=== PATIENT | male | born 1990 | race Hispanic/Latino ===

== ENCOUNTER 2017-11-16 21:53 | Emergency (ER) | payer OTHER, SELFPAY ==
[2017-11-16] MEDS ORDERED: predniSONE 20 MG TAB ONE (23:00)
[2017-11-16] MEDS ORDERED: FAMOTIDINE 20 MG TAB ONE (23:01)
--- NOTE | 2017-11-16 23:42 | ER ---
Nurse's Notes [facility] Name: Wai Stewart Age: 26 yrs Sex: Male : 1990 Arrival Date: 11/16/2017 Time: 21:57 Bed 5 Private MD: Diagnosis: Pruritus;Insect bite (nonvenomous), unspecified foot Presentation: 11/16 22:02 Presenting complaint: Patient states: He was bit by ants 45 minutes ago, then about 20 aj1 minutes ago he started itching all over, feeling short of breath, and his throat has been feeling scratchy. Breath sounds are clear to auscultation. No rash noted. Transition of care: patient was not received from another setting of care. Onset: The symptoms/episode began/occurred suddenly. Anaphylaxis evaluation, the patient reports or I have noted the following symptoms which indicate a significant risk of anaphylaxis: shortness of breath urticaria. Onset of symptoms was November 16, 2017 at 21:15. Risk Assessment: Do you want to hurt yourself or someone else? Patient reports no desire to harm self or others. Initial Sepsis Screen: Does the patient meet any 2 criteria? No. Patient's initial sepsis screen is negative. Does the patient have a suspected source of infection? No. Patient's initial sepsis screen is negative. Care prior to arrival: None. 22:02 Method Of Arrival: Ambulatory aj1 22:02 Acuity: CEDRIC 3 aj1 Triage Assessment: 22:07 General: Appears in no apparent distress. uncomfortable, Behavior is calm, cooperative, aj1 appropriate for age. Pain: Denies pain. Neuro: Level of Consciousness is awake, alert, obeys commands. Cardiovascular: Patient's skin is warm and dry. Respiratory: Reports shortness of breath cough that is Airway is patent Respiratory effort is even, unlabored, Respiratory pattern is regular, symmetrical, Breath sounds are clear. Historical: - Allergies: 22:07 No Known Allergies; aj1 - Home Meds: 22:07 None [Active]; aj1 - PMHx: 22:07 None; aj1 - Immunization history:: Flu vaccine is not up to date. - Social history:: Smoking status: Patient/guardian denies using tobacco. - Ebola Screening: : Patient denies travel to an Ebola-affected area in the 21 days before illness onset. Screenin:21 Abuse screen: Denies threats or abuse. Denies injuries from another. Nutritional ak1 screening: No deficits noted. Tuberculosis screening: No symptoms or risk factors identified. Fall Risk None identified. Assessment: 22:25 General: Appears in no apparent distress. Behavior is calm, cooperative. Pain: ak1 Complains of pain in throat. Neuro: No deficits noted. Cardiovascular: No deficits noted. Respiratory: Airway is patent Breath sounds are clear bilaterally. GI: No deficits noted. : No signs and/or symptoms were reported regarding the genitourinary system. EENT: Throat is reddened has enlarged tonsils on right on left. Derm: Reports pain from ant bites started after his shower. Musculoskeletal: No signs and/or symptoms reported regarding the musculoskeletal system. 23:01 Reassessment: Patient appears in no apparent distress at this time. No changes from ak1 previously documented assessment. Patient and/or family updated on plan of care and expected duration. Pain level reassessed. Patient is alert, oriented x 3, equal unlabored respirations, skin warm/dry/pink. pt refused Benadryl PO, he drove himself to ER with no alternate way home. . Respiratory: Airway is patent Respiratory effort is even, unlabored, Respiratory pattern is regular, no resp distress noted at this time. 23:48 Reassessment: DC instructions given to patient. Patient agree with the POC and to ao follow up with PCP. Patient had no questions. Vital Signs: 22:07 BP 124 / 82; Pulse 87; Resp 18; Temp 98.9(O); Pulse Ox 96% on R/A; Weight 74.84 kg; aj1 Height 5 ft. 7 in. (170.18 cm) (R); Pain 0/10; 23:04 Pulse 69; Resp 16; Pulse Ox 97% on R/A; ak1 22:07 Body Mass Index 25.84 (74.84 kg, 170.18 cm) aj ED Course: 21:57 Patient arrived in ED. es 22:06 Triage completed. aj1 22:07 Arm band placed on Patient placed in an exam room. aj1 22:13 Joshua Kenny MD is Attending Physician. 22:21 Jovanna Gerber, CARRILLO is Primary Nurse. ak1 22:21 Bed in low position. Call light in reach. Side rails up X2. Adult w/ patient. Pulse ox ak1 on. NIBP on. 23:03 No provider procedures requiring assistance completed. ak1 23:49 Patient did not have IV access during this emergency room visit. ao Administered Medications: 22:59 Not Given (Patient Refused; pt drove himself, has no other ride home): Benadryl 50 mg ak1 PO once 22:59 Drug: Pepcid 20 mg Route: PO; ak1 23:50 Follow up: Response: No adverse reaction ao 22:59 Drug: predniSONE 20 mg Route: PO; ak1 23:50 Follow up: Response: No adverse reaction ao Outcome: 23:42 Discharge ordered by . gs 23:49 Discharged to home ambulatory. ao 23:49 Condition: stable 23:49 Discharge instructions given to patient, Instructed on discharge instructions, follow up and referral plans. Demonstrated understanding of instructions, follow-up care, medications, Prescriptions given X 2. 23:49 Patient left the ED. ao Signatures: Lela Barnes RN RN aj1 Maribell Crocker Amber, RN RN ak1 Arun Garnica RN RN ao Joshua Kenny MD MD
--- NOTE | 2017-11-16 23:42 | EDPHYS ---
Physician Documentation [facility] Name: Wai Stewart Age: 26 yrs Sex: Male : 1990 Arrival Date: 11/16/2017 Time: 21:57 Bed 5 Private MD: ED Physician Joshua Kenny HPI: 11/17 00:47 This 26 yrs old Male presents to ER via Ambulatory with complaints of Allergic gs Reaction, TO ANT BITES. 00:47 Onset: The symptoms/episode began/occurred acutely. Associated signs and symptoms: gs Pertinent negatives: Altered mental status Light headed shortness of breath, Syncope vomiting. Possible causes: ants. At home the patient or guardian has treated the symptoms with nothing. Severity of symptoms: At their worst the symptoms were moderate in the emergency department the symptoms are unchanged. The patient has experienced similar episodes in the past, a few times. The patient has not recently seen a physician. Historical: - Allergies: 11/16 22:07 No Known Allergies; aj1 - Home Meds: 22:07 None [Active]; aj1 - PMHx: 22:07 None; aj1 - Immunization history:: Flu vaccine is not up to date. - Social history:: Smoking status: Patient/guardian denies using tobacco. - Ebola Screening: : Patient denies travel to an Ebola-affected area in the 21 days before illness onset. ROS: 11/17 00:47 All other systems are negative. gs Exam: 00:47 Head/Face: Normocephalic, atraumatic. Eyes: Pupils equal round and reactive to light, gs extra-ocular motions intact. Lids and lashes normal. Conjunctiva and sclera are non-icteric and not injected. Cornea within normal limits. Periorbital areas with no swelling, redness, or edema. ENT: Nares patent. No nasal discharge, no septal abnormalities noted. Tympanic membranes are normal and external auditory canals are clear. Oropharynx with no redness, swelling, or masses, exudates, or evidence of obstruction, uvula midline. Mucous membranes moist. Neck: Trachea midline, no thyromegaly or masses palpated, and no cervical lymphadenopathy. Supple, full range of motion without nuchal rigidity, or vertebral point tenderness. No Meningismus. Chest/axilla: Normal chest wall appearance and motion. Nontender with no deformity. No lesions are appreciated. Cardiovascular: Regular rate and rhythm with a normal S1 and S2. No gallops, murmurs, or rubs. Normal PMI, no JVD. No pulse deficits. Respiratory: Lungs have equal breath sounds bilaterally, clear to auscultation and percussion. No rales, rhonchi or wheezes noted. No increased work of breathing, no retractions or nasal flaring. Abdomen/GI: Soft, non-tender, with normal bowel sounds. No distension or tympany. No guarding or rebound. No evidence of tenderness throughout. Back: No spinal tenderness. No costovertebral tenderness. Full range of motion. MS/ Extremity: Pulses equal, no cyanosis. Neurovascular intact. Full, normal range of motion. Neuro: Awake and alert, GCS 15, oriented to person, place, time, and situation. Cranial nerves II-XII grossly intact. Motor strength 5/5 in all extremities. Sensory grossly intact. Cerebellar exam normal. Normal gait. 00:47 Constitutional: The patient appears alert, awake, uncomfortable, itching 00:47 Skin: urticaria, mild. Vital Signs: 11/16 22:07 BP 124 / 82; Pulse 87; Resp 18; Temp 98.9(O); Pulse Ox 96% on R/A; Weight 74.84 kg; aj1 Height 5 ft. 7 in. (170.18 cm) (R); Pain 0/10; 23:04 Pulse 69; Resp 16; Pulse Ox 97% on R/A; ak1 22:07 Body Mass Index 25.84 (74.84 kg, 170.18 cm) aj1 MDM: 22:46 Patient medically screened. gs 11/17 00:47 Differential diagnosis: urticaria. Data reviewed: vital signs, nurses notes. Response gs to treatment: the patient's symptoms have markedly improved after treatment, and as a result, I will discharge patient. Administered Medications: 11/16 22:59 Not Given (Patient Refused; pt drove himself, has no other ride home): Benadryl 50 mg ak1 PO once 22:59 Drug: Pepcid 20 mg Route: PO; ak1 23:50 Follow up: Response: No adverse reaction ao 22:59 Drug: predniSONE 20 mg Route: PO; ak1 23:50 Follow up: Response: No adverse reaction ao Disposition: 11/16/17 23:42 Discharged to Home. Impression: Pruritus, Insect bite (nonvenomous), unspecified foot. - Condition is Stable. - Discharge Instructions: Insect Bite, [id number]. - Prescriptions for Prednisone 20 mg Oral Tablet - take 1 tablet by ORAL route once daily for 5 days; 5 tablet. Zyrtec 10 mg Oral Tablet - take 1 tablet by ORAL route once daily As needed; 20 tablet. - Medication Reconciliation Form, Thank You Letter, Antibiotic Education, Prescription Opioid Use form. - Follow up: Private Physician; When: 2 - 3 days; Reason: Re-evaluation by your physician. Signatures: Lela Barnes RN RN aj1 Jovanna Gerber RN RN ak1 Arun Garnica RN RN ao Joshua Kenny MD MD gs Corrections: (The following items were deleted from the chart) 23:49 23:42 11/16/2017 23:42 Discharged to Home. Impression: Pruritus; Insect bite ao (nonvenomous), unspecified foot. Condition is Stable. Forms are Medication Reconciliation Form, Thank You Letter, Antibiotic Education, Prescription Opioid Use. Follow up: Private Physician; When: 2 - 3 days; Reason: Re-evaluation by your physician. gs
== END 2017-11-16 23:49 | disposition home or self-care (01) ==
LOC: ER 21:53
DX: L29.9 Pruritus, unspecified (principal)
CPT/HCPCS: 99283; J7512

== ENCOUNTER 2017-12-23 19:20 | Emergency (ER) | payer SELFPAY ==
[2017-12-23] MEDS ORDERED: FLUORESCEIN SODIUM 0.6 MG/WRAP ONE (19:39)
[2017-12-23] MEDS ORDERED: TETRACAINE HCL 0.5% 2ML OPTH ONE (19:39)
--- NOTE | 2017-12-23 20:39 | ER ---
Nurse's Notes [facility] Name: Wai Stewart Age: 27 yrs Sex: Male : 1990 Arrival Date: 12/23/2017 Time: 19:21 Bed 11 Private MD: Diagnosis: Blepharitis Presentation: 12/23 19:35 Presenting complaint: Patient states: he has a stye on the lower lid of his right eye bb since yesterday which seems to be getting worse also feels like there is something in it. Transition of care: patient was not received from another setting of care. Onset of symptoms was December 22, 2017. Risk Assessment: Do you want to hurt yourself or someone else? Patient reports no desire to harm self or others. Initial Sepsis Screen: Does the patient meet any 2 criteria? No. Patient's initial sepsis screen is negative. Does the patient have a suspected source of infection? No. Patient's initial sepsis screen is negative. Care prior to arrival: None. 19:35 Method Of Arrival: Ambulatory bb 19:35 Acuity: CEDRIC 4 bb Historical: - Allergies: 19:37 No Known Allergies; bb - Home Meds: 19:37 None [Active]; bb - PMHx: 19:37 None; bb - PSHx: 19:37 right arm; bb - Immunization history:: Adult Immunizations up to date. - Social history:: Smoking status: Patient/guardian denies using tobacco, Patient uses alcohol, occasionally. Patient/guardian denies using street drugs. - Ebola Screening: : No symptoms or risks identified at this time. Screenin:53 Abuse screen: Denies threats or abuse. Denies injuries from another. Nutritional rv screening: No deficits noted. Tuberculosis screening: No symptoms or risk factors identified. Fall Risk None identified. Assessment: 19:54 General: Appears in no apparent distress. comfortable, Behavior is calm, cooperative. rv Pain: Complains of pain in RIGHT EYE. Neuro: Level of Consciousness is awake, alert, obeys commands, Oriented to person, place, time, situation. Cardiovascular: Capillary refill < 3 seconds. Respiratory: Airway is patent. GI: No signs and/or symptoms were reported involving the gastrointestinal system. : No signs and/or symptoms were reported regarding the genitourinary system. EENT: Eyes are tearing on RIGHT EYE Lid(s) w/ stye noted RIGHT EYE. Derm: Skin is intact. Vital Signs: 19:37 BP 128 / 77; Pulse 96; Resp 16 S; Temp 98.3(O); Pulse Ox 99% on R/A; Weight 77.11 kg bb (R); Height 5 ft. 7 in. (170.18 cm) (R); Pain 6/10; 19:37 Body Mass Index 26.63 (77.11 kg, 170.18 cm) bb Visual Acuity: 19:37 Left Eye Visual acuity 20/15, Pupil size 4 mm, ; Right Eye Visual acuity 20/15, Pupil bb size 4 mm, ; Both Eyes Visual acuity 20/15; Without Lenses; ED Course: 19:21 Patient arrived in ED. es 19:33 Javid Riojas NP is PHCP. pm1 19:33 Franki Gu MD is Attending Physician. pm1 19:36 Triage completed. bb 19:37 Arm band placed on Patient placed in an exam room, on a stretcher, on pulse oximetry. bb 19:55 Patient has correct armband on for positive identification. Call light in reach. Pulse rv ox on. NIBP on. 20:43 Christin Ruiz MD is Referral Physician. pm1 20:59 No provider procedures requiring assistance completed. Patient did not have IV access rv during this emergency room visit. Administered Medications: 19:39 Drug: Tetracaine Drops 0.5 % 1 drops Route: Ophthalmic; Site: right eye; bb Outcome: 20:38 Discharge ordered by MD. pm1 20:59 Discharged to home ambulatory. rv 20:59 Condition: good 20:59 Discharge instructions given to patient, Instructed on discharge instructions, follow up and referral plans. medication usage, Demonstrated understanding of instructions, follow-up care, medications, Prescriptions given X 1. 20:59 Patient left the ED. rv Signatures: Maribell Crocker Brenda, RN RN bb Javid Riojas NP SECURED ENTRANCE MONITOR pm1 London Gayle RN RN rv
--- NOTE | 2017-12-23 20:39 | EDPHYS ---
Physician Documentation [facility] Name: Wai Stewart Age: 27 yrs Sex: Male : 1990 Arrival Date: 12/23/2017 Time: 19:21 Bed 11 Private MD: ED Physician Franki Gu HPI: 12/23 20:37 This 27 yrs old Male presents to ER via Ambulatory with complaints of Eye pm1 Problem. 20:37 The patient is experiencing swelling lower right eyelid, caused by an unknown pm1 mechanism. Onset: The symptoms/episode began/occurred 2 day(s) ago. Duration: the symptoms are continuous. Aggravated by nothing. Alleviated by nothing. Associated signs and symptoms: Pertinent negatives: fever. Patient does not utilize any form of vision correction. Severity of symptoms: in the emergency department the symptoms are worse. The patient has not experienced similar symptoms in the past. The patient has not recently seen a physician. No visual changes.. Historical: - Allergies: 19:37 No Known Allergies; bb - Home Meds: 19:37 None [Active]; bb - PMHx: 19:37 None; bb - PSHx: 19:37 right arm; bb - Immunization history:: Adult Immunizations up to date. - Social history:: Smoking status: Patient/guardian denies using tobacco, Patient uses alcohol, occasionally. Patient/guardian denies using street drugs. - Ebola Screening: : No symptoms or risks identified at this time. ROS: 20:37 Constitutional: Negative for fever, chills, and weight loss. pm1 20:37 ENT: Negative for injury, pain, and discharge, Neck: Negative for injury, pain, and swelling, Cardiovascular: Negative for chest pain, palpitations, and edema, Respiratory: Negative for shortness of breath, cough, wheezing, and pleuritic chest pain, Abdomen/GI: Negative for abdominal pain, nausea, vomiting, diarrhea, and constipation, Back: Negative for injury and pain, MS/Extremity: Negative for injury and deformity, Skin: Negative for injury, rash, and discoloration, Neuro: Negative for headache, weakness, numbness, tingling, and seizure. 20:37 Eyes: Positive for foreign body sensation, swelling, of the right lower eyelid, Negative for blurry vision, itching, matting, vision loss, visual disturbance. Exam: 20:37 Constitutional: This is a well developed, well nourished patient who is awake, alert, pm1 and in no acute distress. Head/Face: Normocephalic, atraumatic. 20:37 ENT: Nares patent. No nasal discharge, no septal abnormalities noted. Tympanic membranes are normal and external auditory canals are clear. Oropharynx with no redness, swelling, or masses, exudates, or evidence of obstruction, uvula midline. Mucous membranes moist. Neck: Trachea midline, no thyromegaly or masses palpated, and no cervical lymphadenopathy. Supple, full range of motion without nuchal rigidity, or vertebral point tenderness. No Meningismus. Chest/axilla: Normal chest wall appearance and motion. Nontender with no deformity. No lesions are appreciated. Cardiovascular: Regular rate and rhythm with a normal S1 and S2. No gallops, murmurs, or rubs. Normal PMI, no JVD. No pulse deficits. Respiratory: Lungs have equal breath sounds bilaterally, clear to auscultation and percussion. No rales, rhonchi or wheezes noted. No increased work of breathing, no retractions or nasal flaring. Abdomen/GI: Soft, non-tender, with normal bowel sounds. No distension or tympany. No guarding or rebound. No evidence of tenderness throughout. Back: No spinal tenderness. No costovertebral tenderness. Full range of motion. Skin: Warm, dry with normal turgor. Normal color with no rashes, no lesions, and no evidence of cellulitis. MS/ Extremity: Pulses equal, no cyanosis. Neurovascular intact. Full, normal range of motion. 20:37 Eyes: Periorbital structures: appear normal, Pupils: no acute changes, Extraocular movements: intact throughout, Conjunctiva: normal, no chemosis, no exudate, no injection, no subconjunctival hemorrhage Corneas: are normal, no evidence of abrasion, no foreign body, a fluorescein strip employed to appreciate the findings, Lids and lashes: edema, right lower eyelid. Vital Signs: 19:37 BP 128 / 77; Pulse 96; Resp 16 S; Temp 98.3(O); Pulse Ox 99% on R/A; Weight 77.11 kg bb (R); Height 5 ft. 7 in. (170.18 cm) (R); Pain 6/10; 19:37 Body Mass Index 26.63 (77.11 kg, 170.18 cm) bb Visual Acuity: 19:37 Left Eye Visual acuity 20/15, Pupil size 4 mm, ; Right Eye Visual acuity 20/15, Pupil bb size 4 mm, ; Both Eyes Visual acuity 20/15; Without Lenses; MDM: 19:41 Patient medically screened. pm1 20:37 Data reviewed: vital signs. Data interpreted: Pulse oximetry: on room air is 99 %. pm1 Interpretation: normal. Counseling: I had a detailed discussion with the patient and/or guardian regarding: the historical points, exam findings, and any diagnostic results supporting the discharge/admit diagnosis, the need for outpatient follow up, for definitive care, an opthalmologist, to return to the emergency department if symptoms worsen or persist or if there are any questions or concerns that arise at home. 12/23 19:39 Order name: Fluoresene Opth strip; Complete Time: 19:39 bb 12/23 19:39 Order name: Eye Tray; Complete Time: 19:39 bb Administered Medications: 19:39 Drug: Tetracaine Drops 0.5 % 1 drops Route: Ophthalmic; Site: right eye; bb Disposition: 22:00 Co-signature as Attending Physician, Franki Gu MD I agree with the assessment and kdr plan of care. Disposition: 12/23/17 20:38 Discharged to Home. Impression: Blepharitis. - Condition is Stable. - Discharge Instructions: Blepharitis. - Prescriptions for Erythromycin 5 mg/gram (0.5 %) Ophthalmic Ointment - apply 1 centimeter by OPHTHALMIC route every 8 hours for 7 days; 1 tube. - Medication Reconciliation Form, Thank You Letter, Antibiotic Education, Prescription Opioid Use form. - Follow up: Emergency Department; When: As needed; Reason: Worsening of condition. Follow up: Private Physician; When: 2 - 3 days; Reason: Recheck today's complaints, Continuance of care, Re-evaluation by your physician. Follow up: Christin Ruiz MD; When: 2 - 3 days; Reason: Recheck today's complaints, Continuance of care, Re-evaluation by your physician. - Problem is new. - Symptoms have improved. Signatures: Franki Gu MD MD kdr Paradise Delgado RN RN bb Javid Riojas NP [employer]ICE ADVISOR pm1 London Gayle, RN RN rv Corrections: (The following items were deleted from the chart) 20:43 20:38 12/23/2017 20:38 Discharged to Home. Impression: Blepharitis. Condition is pm1 Stable. Forms are Medication Reconciliation Form, Thank You Letter, Antibiotic Education, Prescription Opioid Use. Follow up: Emergency Department; When: As needed; Reason: Worsening of condition. Follow up: Private Physician; When: 2 - 3 days; Reason: Recheck today's complaints, Continuance of care, Re-evaluation by your physician. Problem is new. Symptoms have improved. pm1 20:59 20:43 12/23/2017 20:38 Discharged to Home. Impression: Blepharitis. Condition is rv Stable. Discharge Instructions: Blepharitis. Prescriptions for Erythromycin 5 mg/gram (0.5 %) Ophthalmic Ointment - apply 1 centimeter by OPHTHALMIC route every 8 hours for 7 days; 1 tube. and Forms are Medication Reconciliation Form, Thank You Letter, Antibiotic Education, Prescription Opioid Use. Follow up: Emergency Department; When: As needed; Reason: Worsening of condition. Follow up: Private Physician; When: 2 - 3 days; Reason: Recheck today's complaints, Continuance of care, Re-evaluation by your physician. Follow up: Christin Ruiz; When: 2 - 3 days; Reason: Recheck today's complaints, Continuance of care, Re-evaluation by your physician. Problem is new. Symptoms have improved. pm1
== END 2017-12-23 20:59 | disposition home or self-care (01) ==
LOC: ER 19:20
DX: H01.006 Unspecified blepharitis left eye, unspecified eyelid (principal)
CPT/HCPCS: 99283

== ENCOUNTER 2018-12-21 20:58 | Emergency (ER) | payer SELFPAY ==
[2018-12-21] MEDS ORDERED: HYDROCODONE/APAP 10/325 TAB ONE (21:29)
--- NOTE | 2018-12-21 21:45 | ER ---
Nurse's Notes [facility] Name: Wai Stewart Age: 28 yrs Sex: Male : 1990 Arrival Date: 12/21/2018 Time: 21:02 Bed 12 [facility] MD: Diagnosis: Cellulitis of left lower limb Presentation: 12/21 21:05 Presenting complaint: Patient states: left foot pain X5 days. swelling noted to left ak1 foot. pt stated he injured it Friday last week while playing on the floor with his children. Transition of care: patient was not received from another setting of care. Onset of symptoms is unknown. Risk Assessment: Do you want to hurt yourself or someone else? Patient reports no desire to harm self or others. Initial Sepsis Screen: Does the patient meet any 2 criteria? No. Patient's initial sepsis screen is negative. Does the patient have a suspected source of infection? No. Patient's initial sepsis screen is negative. Care prior to arrival: None. 21:05 Method Of Arrival: Wheelchair ak1 21:05 Acuity: CEDRIC 4 ak1 Triage Assessment: 21:06 General: Appears in no apparent distress. uncomfortable, Behavior is calm, cooperative. ak1 21:22 Injury Description: pt reported hearing a popping sound when standing up and then pain jd3 in the foot. Historical: - Allergies: 21:06 No Known Allergies; ak1 - Home Meds: 21:06 None [Active]; ak1 - PMHx: 21:06 None; ak1 - PSHx: 21:06 None; ak1 - Immunization history:: Adult Immunizations unknown. - Social history:: Smoking status: Patient/guardian denies using tobacco. - Ebola Screening: : No symptoms or risks identified at this time. Screenin:22 Abuse screen: Denies threats or abuse. Nutritional screening: No deficits noted. jd3 Tuberculosis screening: No symptoms or risk factors identified. Fall Risk Ambulatory Aid- None/Bed Rest/Nurse Assist (0 pts). Gait- Normal/Bed Rest/Wheelchair (0 pts) Mental Status- Oriented to own ability (0 pts). Total Buchanan Fall Scale indicates No Risk (0-24 pts). Assessment: 21:19 General: Appears in no apparent distress. uncomfortable, Behavior is calm, cooperative, jd3 appropriate for age. Pain: Complains of pain in dorsum of left foot, left fourth toe and left fifth toe Quality of pain is described as aching, throbbing, Aggravated by increased activity, weight bearing. Neuro: Level of Consciousness is awake, alert, obeys commands, Oriented to person, place, time, situation. Cardiovascular: Capillary refill < 3 seconds Patient's skin is warm and dry. Respiratory: Airway is patent Respiratory effort is even, unlabored, Respiratory pattern is regular, symmetrical. GI: No signs and/or symptoms were reported involving the gastrointestinal system. : No signs and/or symptoms were reported regarding the genitourinary system. EENT: No signs and/or symptoms were reported regarding the EENT system. Derm: Skin is intact, Skin is dry, Skin is normal, Skin temperature is warm Wound noted left fourth toe and left fifth toe Wound is skin breakdown between the toes with exudate noted. Musculoskeletal: Circulation, motion, and sensation intact. Range of motion: intact in all extremities, Swelling present in left foot. 22:04 Reassessment: Patient appears in no apparent distress at this time. Patient and/or jd3 family updated on plan of care and expected duration. Pain level reassessed. Patient is alert, oriented x 3, equal unlabored respirations, skin warm/dry/pink. reported understanding of discharge instructions. Vital Signs: 21:06 BP 115 / 74; Pulse 80; Resp 16; Temp 98.1; Pulse Ox 99% on R/A; Weight 81.65 kg (R); ak1 Height 5 ft. 7 in. (170.18 cm) (R); Pain 10/10; 21:06 Body Mass Index 28.19 (81.65 kg, 170.18 cm) ak1 ED Course: 21:02 Patient arrived in ED. cl3 21:06 Triage completed. ak1 21:06 Arm band placed on Patient placed in an exam room, in a wheelchair, Patient notified of ak1 wait time. 21:14 Breezy Brito PA is PHCP. jr8 21:14 Montrell Boss MD is Attending Physician. jr8 21:19 Nick Bill RN is Primary Nurse. jd3 21:23 Patient has correct armband on for positive identification. Bed in low position. Call jd3 light in reach. Side rails up X 1. Adult w/ patient. 21:37 Foot Left 3 View XRAY In Process Unspecified. EDMS 22:03 No provider procedures requiring assistance completed. Patient did not have IV access jd3 during this emergency room visit. Administered Medications: 21:30 Drug: [place] 10 mg-325 mg 1 tabs Route: PO; jd3 22:05 Follow up: Response: No adverse reaction; RASS: Alert and Calm (0) jd3 21:57 Drug: Bactrim (160 mg-800 mg (DS) 1 tablet Route: PO; jd3 22:05 Follow up: Response: Medication administered at discharge. jd3 21:57 Drug: Doxycycline 100 mg Route: PO; jd3 22:04 Follow up: Response: Medication administered at discharge. jd3 Outcome: 21:44 Discharge ordered by . jr8 22:03 Discharged to home ambulatory, with crutches, with family. jd3 22:03 Condition: stable 22:03 Discharge instructions given to patient, family, Instructed on discharge instructions, follow up and referral plans. medication usage, Demonstrated understanding of instructions, follow-up care, medications, Prescriptions given X 4. 22:05 Patient left the ED. jd3 Signatures: Dispatcher [employer] EDMS Breezy Brito PA PA jrJovanna Glover RN RN Nick Daniels RN RN Nino Mcallister cl3
--- NOTE | 2018-12-21 21:46 | EDPHYS ---
Physician Documentation [facility] Name: Wai Stewart Age: 28 yrs Sex: Male : 1990 Arrival Date: 12/21/2018 Time: 21:02 Bed 12 Private MD: ED Physician Montrell Boss HPI: 12/21 21:35 This 28 yrs old Male presents to ER via Wheelchair with complaints of Foot jr8 Injury. 21:35 The complaints affect the dorsum of left foot. Context: the patient can fully bear jr8 weight, the patient is able to ambulate, Pt reports he attempted to stand up from the kneeling position and felt a pop in his left foot. Since the injury he has been working 12 hour shifts and standing the whole time. . Onset: The symptoms/episode began/occurred 3 day(s) ago. Associated signs and symptoms: Pertinent positives: swelling, warmth. Treatment prior to arrival includes: no previous treatment. Severity of symptoms: At their worst the symptoms were moderate, in the emergency department the symptoms are unchanged. The patient has not experienced similar symptoms in the past. The patient has not recently seen a physician. Pt reports noticing redness and increased swelling to dorsum of left foot that began this morning. . Historical: - Allergies: 21:06 No Known Allergies; ak1 - Home Meds: 21:06 None [Active]; ak1 - PMHx: 21:06 None; ak1 - PSHx: 21:06 None; ak1 - Immunization history:: Adult Immunizations unknown. - Social history:: Smoking status: Patient/guardian denies using tobacco. - Ebola Screening: : No symptoms or risks identified at this time. ROS: 21:35 Constitutional: Negative for fever, chills, and weight loss, Eyes: Negative for injury, jr8 pain, redness, and discharge, ENT: Negative for injury, pain, and discharge, Neck: Negative for injury, pain, and swelling, Cardiovascular: Negative for chest pain, palpitations, and edema, Respiratory: Negative for shortness of breath, cough, wheezing, and pleuritic chest pain, Abdomen/GI: Negative for abdominal pain, nausea, vomiting, diarrhea, and constipation, Neuro: Negative for headache, weakness, numbness, tingling, and seizure. 21:35 MS/extremity: Positive for erythema, pain, swelling, of the dorsum of left foot. 21:35 Skin: Positive for cellulitis, dorsum of left foot distally at base of 3rd, fourth, and fifth toes. Exam: 21:35 Constitutional: This is a well developed, well nourished patient who is awake, alert, jr8 and in no acute distress. Head/Face: Normocephalic, atraumatic. Eyes: Pupils equal round and reactive to light, extra-ocular motions intact. Lids and lashes normal. Conjunctiva and sclera are non-icteric and not injected. Cornea within normal limits. Periorbital areas with no swelling, redness, or edema. ENT: Nares patent. No nasal discharge, no septal abnormalities noted. Tympanic membranes are normal and external auditory canals are clear. Oropharynx with no redness, swelling, or masses, exudates, or evidence of obstruction, uvula midline. Mucous membranes moist. Neck: Trachea midline, no thyromegaly or masses palpated, and no cervical lymphadenopathy. Supple, full range of motion without nuchal rigidity, or vertebral point tenderness. No Meningismus. Chest/axilla: Normal chest wall appearance and motion. Nontender with no deformity. No lesions are appreciated. Cardiovascular: Regular rate and rhythm with a normal S1 and S2. No gallops, murmurs, or rubs. Normal PMI, no JVD. No pulse deficits. Respiratory: Lungs have equal breath sounds bilaterally, clear to auscultation and percussion. No rales, rhonchi or wheezes noted. No increased work of breathing, no retractions or nasal flaring. Abdomen/GI: Soft, non-tender, with normal bowel sounds. No distension or tympany. No guarding or rebound. No evidence of tenderness throughout. Back: No spinal tenderness. No costovertebral tenderness. Full range of motion. Neuro: Awake and alert, GCS 15, oriented to person, place, time, and situation. Cranial nerves II-XII grossly intact. Motor strength 5/5 in all extremities. Sensory grossly intact. Cerebellar exam normal. Normal gait. 21:35 Skin: cellulitis, that is mild, on the dorsum of left foot, induration, that is mild is noted. Vital Signs: 21:06 BP 115 / 74; Pulse 80; Resp 16; Temp 98.1; Pulse Ox 99% on R/A; Weight 81.65 kg (R); ak1 Height 5 ft. 7 in. (170.18 cm) (R); Pain 10/10; 21:06 Body Mass Index 28.19 (81.65 kg, 170.18 cm) ak1 MDM: 21:15 Patient medically screened. jr8 21:41 Data reviewed: vital signs, nurses notes, radiologic studies, and as a result, I will jr8 discharge patient. Data interpreted: Pulse oximetry: on room air is 99 %. Interpretation: normal. Counseling: I had a detailed discussion with the patient and/or guardian regarding: the historical points, exam findings, and any diagnostic results supporting the discharge/admit diagnosis, radiology results, the need for outpatient follow up, a family practitioner. Medication response: norco, helped with pain. Response to treatment: the patient's symptoms have mildly improved after treatment. ED course: pt instructed to elevate extremity, take ABX as prescribed, stay out of sun, do not wear rubber boots at work, take rest of week off of work. 12/21 21:20 Order name: Foot Left 3 View XRAY; Complete Time: 21:57 jr Administered Medications: 21:30 Drug: [place] 10 mg-325 mg 1 tabs Route: PO; jd3 22:05 Follow up: Response: No adverse reaction; RASS: Alert and Calm (0) jd3 21:57 Drug: Bactrim (160 mg-800 mg (DS) 1 tablet Route: PO; jd3 22:05 Follow up: Response: Medication administered at discharge. jd3 21:57 Drug: Doxycycline 100 mg Route: PO; jd3 22:04 Follow up: Response: Medication administered at discharge. jd3 Disposition: 12/22 06:53 Co-signature as Attending Physician, Montrell Boss MD I agree with the assessment and tw4 plan of care. Disposition: 12/21/18 21:44 Discharged to Home. Impression: Cellulitis of left lower limb. - Condition is Stable. - Discharge Instructions: Cellulitis, Adult. - Prescriptions for Ibuprofen 800 mg Oral Tablet - take 1 tablet by ORAL route every 12 hours As needed take with food; 20 tablet. Tylenol- Codeine #3 300-30 mg Oral Tablet - take 1 tablet by ORAL route every 6 hours As needed; 12 tablet. Doxycycline Hyclate 100 mg Oral Tablet - take 1 tablet by ORAL route every 12 hours; 20 tablet. Bactrim DS 800- 160 mg Oral Tablet - take 1 tablet by ORAL route every 12 hours for 10 days; 20 tablet. - Work release form, Medication Reconciliation Form, Thank You Letter, Antibiotic Education, Prescription Opioid Use form. - Problem is new. - Symptoms are unchanged. Signatures: Dispatcher [employer] EDMI Breezy Brito PA PA jr8 Jovanna Gerber RN RN ak1 Nick Bill RN RN jd3 Montrell Boss MD MD tw4 Corrections: (The following items were deleted from the chart) 12/21 22:05 21:44 12/21/2018 21:44 Discharged to Home. Impression: Cellulitis of left lower limb. jd3 Condition is Stable. Forms are Medication Reconciliation Form, Thank You Letter, Antibiotic Education, Prescription Opioid Use. Problem is new. Symptoms are unchanged. jr8
--- NOTE | 2018-12-21 21:47 | RAD REPORT ---
EXAM DESCRIPTION: RAD - Foot Left 3 View - 12/21/2018 9:36 pm CLINICAL HISTORY: PAIN COMPARISON: No comparisons FINDINGS: Soft tissue swelling is seen along the dorsum of the foot. No acute fracture identified.
[2018-12-21] MEDS ORDERED: SMZ./TMP. 800/160 MG TABLET ONE (21:55)
[2018-12-21] MEDS ORDERED: DOXYCYCLINE 100 MG CAP PO ONE (21:55)
[2018-12-21 23:04] VITALS: BP 115/74; TEMP 98.1; O2SAT 99
== END 2018-12-21 22:05 | disposition home or self-care (01) ==
LOC: ER 20:58
DX: L03.116 Cellulitis of left lower limb (principal)
CPT/HCPCS: 99283

== ENCOUNTER 2024-07-04 21:09 | Emergency (ER) | payer SELFPAY ==
[2024-07-04] MEDS ORDERED: TETRACAINE HCL 0.5% 4ML OPTH ONE (21:27)
[2024-07-04] MEDS ORDERED: FLUORESCEIN SODIUM 1 MG/WRAP ONE (21:27)
[2024-07-04] MEDS ORDERED: IBUPROFEN 400 MG TAB ONE (22:01)
[2024-07-04] MEDS ORDERED: ACETAMINOPHEN 500 MG TAB ONE (22:01)
--- NOTE | 2024-07-04 22:08 | EDPHYS ---
Physician Documentation [facility] Name: Wai Stewart Age: 33 yrs Sex: Male : 1990 Arrival Date: 07/04/2024 Time: 21:09 Bed 12 Private MD: ED Physician Bob Ricks HPI: 07/04 21:24 This 33 yrs old Male presents to ER via Ambulatory with complaints of Foreign sp4 Body In Eye. 07/05 03:14 33-year-old male presents with left eye discomfort for the past 3 days.. sp4 Historical: - Allergies: 07/04 21:23 No Known Allergies; bm8 - Home Meds: 21:23 None [Active]; bm8 - PMHx: 21:23 None; bm8 - PSHx: 21:23 None; bm8 - Immunization history:: Adult Immunizations up to date. - Infectious Disease History:: Denies. - Social history:: Smoking status: Patient denies any tobacco usage or history of. - Family history:: not pertinent. ROS: 07/05 03:15 Constitutional: Negative for fever, chills, and weight loss, positive for left eye sp4 discomfort, positive left eye redness and pain All other systems are negative, Exam: 03:15 Constitutional: This is a well developed, well nourished patient who is awake, alert, sp4 and in no acute distress. Head/Face: Normocephalic, atraumatic. Eyes: Pupils equal round and reactive to light, extra-ocular motions intact. Right eye exam is normal. Left eye exam reveals conjunctival erythema, clear discharge. There is small corneal abrasion, there is also conjunctival erythema and irritation noted with fluorescein exam. No sign of foreign body ENT: Nares patent. No nasal discharge, no septal abnormalities noted. Tympanic membranes are normal and external auditory canals are clear. Oropharynx with no redness, swelling, or masses, exudates, or evidence of obstruction, uvula midline. Mucous membranes moist. Neck: Trachea midline, no thyromegaly or masses palpated, and no cervical lymphadenopathy. Supple, full range of motion without nuchal rigidity, or vertebral point tenderness. Chest/axilla: Normal chest wall appearance and motion. Nontender with no deformity. No lesions are appreciated. Cardiovascular: Regular rate and rhythm with a normal S1 and S2. No gallops, murmurs, or rubs. Normal PMI, no JVD. No pulse deficits. Respiratory: Lungs have equal breath sounds bilaterally, clear to auscultation and percussion. No rales, rhonchi or wheezes noted. No increased work of breathing, no retractions or nasal flaring. Abdomen/GI: Soft, with normal bowel sounds. No distension or tympany. No guarding or rebound. No evidence of tenderness throughout. Back: No spinal tenderness. No costovertebral tenderness. Skin: Warm, dry with normal turgor. Normal color with no rashes, no lesions, and no evidence of cellulitis. MS/ Extremity: Pulses equal, no cyanosis. Neurovascular intact. Full, normal range of motion. Neuro: Awake and alert, GCS 15, oriented to person, place, time, and situation. Cranial nerves II-XII grossly intact. Motor strength 5/5 in all extremities. Sensory grossly intact. Psych: Awake, alert, with orientation to person, place and time. Behavior, mood, and affect are within normal limits Vital Signs: 07/04 21:22 BP 117 / 72; Pulse 71; Resp 18; Temp 99.1; Pulse Ox 100% ; Weight 78.02 kg; Height 5 bm8 ft. 7 in. ; Pain 7/10; 22:09 BP 115 / 71; Pulse 80; Resp 17; Temp 98.8; Pulse Ox 100% ; Pain 0/10; bm8 21:22 Body Mass Index 26.94 (78.02 kg, 170.18 cm) bm8 21:22 Pain Scale: Adult bm8 22:09 Pain Scale: Adult bm8 Gelacio Coma Score: 22:09 Eye Response: spontaneous(4). Motor Response: obeys commands(6). Verbal Response: bm8 oriented(5). Total: 15. 07/05 03:15 Eye Response: spontaneous(4). Motor Response: obeys commands(6). Verbal Response: sp4 oriented(5). Total: 15. MDM: 07/04 21:43 Medical Screening Exam initiated sp4 07/05 03:17 Differential diagnosis: Corneal abrasion of Corneal ulcer of Foreign body in Acute sp4 iritis of Ultraviolet keratitis in. Data reviewed: vital signs, nurses notes. Consideration of Admission/Observation Escalation of care including admission/observation considered. ED course: Exam positive for small corneal abrasion positive for conjunctival irritation but no sign foreign body. Patient stable for discharge home with prescription for tobramycin ophthalmic drops.. 07/04 21:34 Order name: Eye Tray; Complete Time: 21:34 lg3 07/04 21:34 Order name: Fluoresene Opth strip; Complete Time: :34 lg3 Administered Medications: 07/04 22:08 Drug: Tetracaine Ophthalmic Drops 0.5 % 1 drops Ophthalmic once Route: Ophthalmic; bm8 Site: left eye; 22:10 Follow up: Response: No adverse reaction bm8 22:09 Drug: Ibuprofen PO 800 mg PO once Route: PO; bm8 22:09 Follow up: Response: No adverse reaction bm8 22:09 Drug: Acetaminophen PO 1000 mg PO once Route: PO; bm8 22:09 Follow up: Response: No adverse reaction bm8 Disposition Summary: 07/04/24 22:08 Discharge Ordered Notes: Location: Home sp4 Problem: new sp4 Symptoms: have improved sp4 Condition: Stable sp4 Diagnosis - Acute Left Corneal abrasion sp4 Followup: sp4 - With: Willie Marques MD - When: 5 - 6 days - Reason: Recheck today's complaints Discharge Instructions: - Discharge Summary Sheet sp4 - Corneal Abrasion, [id number] sp4 Forms: - Patient Portal Instructions sp4 Prescriptions: - tobramycin 0.3 % Ophthalmic drops - instill 2 drop OPHTHALMIC route every 4 hours for 5 days; 5 milliliter; sp4 Refills: 0, Product Selection Permitted - Ibuprofen 800 mg Oral Tablet - take 1 tablet ORAL route every 8 hours As needed take with food; 30 tablet; sp4 Refills: 0, Product Selection Permitted Signatures: Rose Marie Ga RN RN lg3 Bob Ricks MD MD sp4 Hernando Shanks RN RN bm8 Corrections: (The following items were deleted from the chart) 21:24 21:23 PSHx: Unable to Obtain; bm8 bm8
--- NOTE | 2024-07-04 22:08 | ER ---
Nurse's Notes [facility] Name: Wai Stewart Age: 33 yrs Sex: Male : 1990 Arrival Date: 07/04/2024 Time: 21:09 Bed 12 Private MD: Diagnosis: Acute Left Corneal abrasion Presentation: 07/04 21:22 Chief complaint: Patient states: i got something in my left eye Friday or thrusday bm8 and it been bugging. Coronavirus screen: At this time, the client does not indicate any symptoms associated with coronavirus-19. Ebola Screen: Patient negative for fever greater than or equal to 101.5 degrees Fahrenheit, and additional compatible Ebola Virus Disease symptoms Patient denies exposure to infectious person. Patient denies travel to an Ebola-affected area in the 21 days before illness onset. No symptoms or risks identified at this time. Initial Sepsis Screen: Does the patient meet any 2 criteria? No. Patient's initial sepsis screen is negative. Does the patient have a suspected source of infection? No. Patient's initial sepsis screen is negative. Risk Assessment: Do you want to hurt yourself or someone else? Patient reports no desire to harm self or others. Onset of symptoms was June 30, 2024. 21:22 Method Of Arrival: Ambulatory bm8 21:22 Acuity: CEDRIC 4 bm8 Triage Assessment: 21:23 General: Appears in no apparent distress. comfortable, Behavior is calm, cooperative, bm8 appropriate for age. Pain: Complains of pain in left eye Pain currently is 7 out of 10 on a pain scale. EENT: Eyes are tearing on left upper eyelid, left outer canthus, outer aspect of conjuctiva of left eye, iris of left eye, inner aspect of conjunctiva of left eye and left inner canthus during triage unable to see any foreign body or scratches. Neuro: No deficits noted. Level of Consciousness is awake, alert, obeys commands, Oriented to person, place, time, situation, Appropriate for age. Cardiovascular: Denies chest pain, Capillary refill < 3 seconds in bilateral fingers Patient's skin is warm and dry. Respiratory: Airway is patent Respiratory effort is even, unlabored, Respiratory pattern is regular, symmetrical. Historical: - Allergies: 21:23 No Known Allergies; bm8 - Home Meds: 21:23 None [Active]; bm8 - PMHx: 21:23 None; bm8 - PSHx: 21:23 None; bm8 - Immunization history:: Adult Immunizations up to date. - Infectious Disease History:: Denies. - Social history:: Smoking status: Patient denies any tobacco usage or history of. - Family history:: not pertinent. Screenin:29 [facility] ED Fall Risk Assessment (Adult) History of falling in the last 3 months, lg3 including since admission No falls in past 3 months (0 pts) Confusion or Disorientation No (0 pts) Intoxicated or Sedated No (0 pts) Impaired Gait No (0 pts) Mobility Assist Device Used No (0 pt) Altered Elimination No (0 pt) Score/Fall Risk Level 0 - 2 = Low Risk Oriented to surroundings, Maintained a safe environment, Educated pt \T\ family on fall prevention, incl call for assistance when getting out of bed, Assessed \T\ reinforced patient's understanding of fall precautions. Abuse screen: Denies threats or abuse. Denies injuries from another. Nutritional screening: No deficits noted. Tuberculosis screening: No symptoms or risk factors identified. Assessment: 21:29 General: Appears in no apparent distress. comfortable, Behavior is calm, cooperative. lg3 Pain: Complains of pain in left eye Pain does not radiate. Pain currently is 7 out of 10 on a pain scale. Alleviated by nothing. Neuro: No deficits noted. Ann Agitation-Sedation Scale (RASS): 0 - Alert and Calm Level of Consciousness is awake, alert, obeys commands, Oriented to person, place, time, situation. Cardiovascular: No deficits noted. Denies chest pain, shortness of breath, Capillary refill < 3 seconds Clubbing of nail beds is absent JVD is absent Patient's skin is warm and dry. Respiratory: No deficits noted. Airway is patent Respiratory effort is even, unlabored, Respiratory pattern is regular, symmetrical, Breath sounds are clear bilaterally. GI: No deficits noted. No signs and/or symptoms were reported involving the gastrointestinal system. : No signs and/or symptoms were reported regarding the genitourinary system. EENT: Eyes are tearing on left eye Reports pain in left eye. Derm: No deficits noted. No signs and/or symptoms reported regarding the dermatologic system. Skin is intact, is healthy with good turgor, Skin is dry, Skin is normal, Skin temperature is warm. Musculoskeletal: No deficits noted. No signs and/or symptoms reported regarding the musculoskeletal system. Circulation, motion, and sensation intact. Range of motion: intact in all extremities. 22:09 Reassessment: Patient appears in no apparent distress at this time. Patient and/or bm8 family updated on plan of care and expected duration. Pain level reassessed. Patient is alert, oriented x 3, equal unlabored respirations, skin warm/dry/pink. Patient denies pain at this time. Patient states feeling better. Patient states symptoms have improved. Vital Signs: 21:22 BP 117 / 72; Pulse 71; Resp 18; Temp 99.1; Pulse Ox 100% ; Weight 78.02 kg; Height 5 bm8 ft. 7 in. ; Pain 7/10; 22:09 BP 115 / 71; Pulse 80; Resp 17; Temp 98.8; Pulse Ox 100% ; Pain 0/10; bm8 21:22 Body Mass Index 26.94 (78.02 kg, 170.18 cm) bm8 21:22 Pain Scale: Adult bm8 22:09 Pain Scale: Adult bm8 Gelacio Coma Score: 22:09 Eye Response: spontaneous(4). Motor Response: obeys commands(6). Verbal Response: bm8 oriented(5). Total: 15. 07/05 03:15 Eye Response: spontaneous(4). Motor Response: obeys commands(6). Verbal Response: sp4 oriented(5). Total: 15. ED Course: 07/04 21:13 Patient arrived in ED. gm2 21:23 Triage completed. bm8 21:24 Bob Ricks MD is Attending Physician. sp4 21:26 Arm band placed on right wrist. bm8 21:29 Patient has correct armband on for positive identification. Bed in low position. Call lg3 light in reach. Side rails up X 1. Client placed on continuous cardiac and pulse oximetry monitoring. NIBP monitoring applied. Door closed. Noise minimized. Warm blanket given. Pillow given. 21:34 Rose Marie Ga RN is Primary Nurse. lg3 22:07 Willie Marques MD is Referral Physician. sp4 22:09 Provided Education on: post er care. bm8 22:09 Assist provider with eye exam of left eye. using slit lamp, Performed by Bob Ricks MD Patient tolerated well. Patient did not have IV access during this emergency room visit. Patient maintains SpO2 saturation greater than 95% on room air. Administered Medications: 22:08 Drug: Tetracaine Ophthalmic Drops 0.5 % 1 drops Ophthalmic once Route: Ophthalmic; bm8 Site: left eye; 22:10 Follow up: Response: No adverse reaction bm8 22:09 Drug: Ibuprofen PO 800 mg PO once Route: PO; bm8 22:09 Follow up: Response: No adverse reaction bm8 22:09 Drug: Acetaminophen PO 1000 mg PO once Route: PO; bm8 22:09 Follow up: Response: No adverse reaction bm8 Medication: 21:29 VIS not applicable for this client. lg3 Outcome: 22:08 Discharge ordered by . spSolomon 22:15 Discharged to home ambulatory, bm8 22:15 Condition: stable 22:15 Discharge instructions given to patient, family, Instructed on discharge instructions, follow up and referral plans. no drinking with medication, no driving heavy equipment, medication usage, safety practices, Demonstrated understanding of instructions, follow-up care, medications, Prescriptions given X 2, 22:15 Patient left the ED. bm8 Signatures: Rose Marie Ga RN RN Bob Foote MD MD spMarjorie Dominique [facility] Hernando Shanks RN RN bm8 Corrections: (The following items were deleted from the chart) 21:24 21:23 PSHx: Unable to Obtain; bm8 bm8
[2024-07-04 22:21] VITALS: O2SAT 100
[2024-07-04 22:22] VITALS: BP 115/71; TEMP 98.8
== END 2024-07-04 22:15 | disposition home or self-care (01) ==
LOC: ER 21:09
DX: S05.02XA Injury of conjunctiva and corneal abrasion without foreign body, left eye, initial encounter (principal)